=== PATIENT | female | born 1990 | race Hispanic/Latino ===

== ENCOUNTER 2022-06-27 15:11 | Day surgery (SDC) | payer OTHER, SELFPAY ==
[2022-06-27 17:02] VITALS: BMI 52.9
== END 2022-06-27 18:20 | disposition home health service (06) ==
LOC: CSHLD/OP 15:11
PROVIDERS: ATTEND Family Medicine
DX: Z36.89 Encounter for other specified antenatal screening (principal)
CPT/HCPCS: 59025; 76819

== ENCOUNTER 2022-07-18 04:59 | Inpatient (IN) | payer MEDICAID, OTHER ==
[2022-07-18] MEDS ORDERED: NS w/ Oxytocin 30 units 500 ML IV SCH ×2 (06:01→11:48)
[2022-07-18] MEDS ORDERED: Bicitra 30 ML UDCUP PO PRN (06:01)
[2022-07-18] MEDS ORDERED: Ondansetron PF 4 MG/2 ML Vial IVP PRN ×3 (06:01→11:48)
[2022-07-18] MEDS ORDERED: Lactated Ringer's 1,000 ML IV SCH (06:01)
[2022-07-18] MEDS ORDERED: Carboprost 250 MCG/ML AMP IM PRN (06:01)
[2022-07-18] MEDS ORDERED: Famotidine/PF 20 mg/2ml Vial SLOW IVP PRN (06:01)
[2022-07-18] MEDS ORDERED: Diphenoxylate HCl/Atropine Tablet PO PRN (06:01)
[2022-07-18] MEDS ORDERED: Misoprostol 200 MCG TAB PR PRN (06:01)
[2022-07-18] MEDS ORDERED: Methylergonovine 0.2 MG/ML VIAL IM PRN (06:01)
[2022-07-18] MEDS ORDERED: hydrALAZINE 20 MG/ML VIAL SLOW IVP PRN ×2 (06:01→11:48)
[2022-07-18] MEDS ORDERED: Promethazine HCl 25 MG/ML VIAL IM PRN ×3 (06:01→11:48)
[2022-07-18] MEDS ORDERED: Tranexamic Acid 1,000 MG/10 ML VIAL IVP PRN (06:01)
[2022-07-18] MEDS ORDERED: CEFAZOLIN 3 GM in Sodium Chloride 0.9% 100 ML IVPB SCH (06:15)
[2022-07-18 06:23] LABS: Hemoglobin 10.9 g/dL (12.0-15.5); Mean Corpuscular HGB CONC 33.3 g/dL (32.0-36.0); Mean Corpuscular Hemoglobin 29.1 pg (27.0-33.0); Mean Corpuscular Volume 87.2 fl (81.6-98.3); Mean Platelet Volume 11.5 fl (7.4-10.4); Platelet Count 262 10x3/uL (150-450); RBC Distribution Width 13.2 % (11.5-14.5); Red Blood Cell (RBC) Count 3.75 10x6/uL (3.90-5.03)
[2022-07-18 06:54] LABS: Syphilis Antibody Nonreactive (Nonreactive); Syphilis Antibody Index 0.04 S/CO (<1.00 Non-Reactive)
[2022-07-18 06:55] LABS: Hep B Surf Ag - L&D Non-Reactive S/CO (NonReactive)
[2022-07-18] MEDS ORDERED: Morphine PF 10 MG/10 ML VIAL ONE (07:10)
[2022-07-18] MEDS ORDERED: Oxytocin 10 UNITS/ML VIAL ONE (07:11)
[2022-07-18] MEDS ORDERED: PHENYLEPHRINE-NS 100 MCG/ML 10 ML SYRINGE ONE (07:42)
[2022-07-18] MEDS ORDERED: Dexamethasone 4 mg/ml Vial ONE (07:44)
[2022-07-18] MEDS ORDERED: Ondansetron PF 4 MG/2 ML Vial ONE (07:44)
[2022-07-18] MEDS ORDERED: Phenylephrine 40 MG/NS 250 ML 250 ML ONE (07:48)
[2022-07-18] MEDS ORDERED: Metoclopramide HCl 10 MG/2 ML VIAL ONE (07:57)
[2022-07-18] MEDS ORDERED: Fentanyl 100 MCG/2 ML VIAL ONE (08:22)
[2022-07-18 08:35] VITALS: BMI 54.3
[2022-07-18] MEDS ORDERED: Promethazine HCl 25 MG SUPP PR PRN (08:55)
[2022-07-18] MEDS ORDERED: Naloxone HCl 0.4 mg/ml Vial IV PRN (08:55)
[2022-07-18] MEDS ORDERED: Ketorolac Tromethamine 30 MG/ML VIAL IVP PRN (08:55)
[2022-07-18] MEDS ORDERED: Naloxone HCl 0.4 mg/ml Vial IVP PRN ×2 (08:55)
[2022-07-18] MEDS ORDERED: Fentanyl 100 MCG/2 ML VIAL SLOW IVP PRN (08:55)
[2022-07-18] MEDS ORDERED: Meperidine HCl/PF 25 MG/ML VIAL SLOW IVP PRN (08:55)
[2022-07-18] MEDS ORDERED: diphenhydrAMINE 50 MG/ML VIAL IVP PRN (08:55)
[2022-07-18] MEDS ORDERED: Moisturizing Cream (Eucerin) 113 GM JAR TOP PRN (08:55)
[2022-07-18] MEDS ORDERED: Ondansetron HCl/PF 4 MG/2 ML Vial IVP PRN (08:55)
[2022-07-18] MEDS ORDERED: Communication Order-Pharmacy FS SCH (09:00)
[2022-07-18] MEDS ORDERED: Ketorolac Tromethamine 30 MG/ML VIAL IVP SCH ×2 (09:00→15:00)
[2022-07-18] MEDS ORDERED: Simethicone Chewable 80 MG TAB PO PRN (11:48)
[2022-07-18] MEDS ORDERED: Lanolin Ointment 7 GM TUBE TOP PRN (11:48)
[2022-07-18] MEDS ORDERED: diphenhydrAMINE 25 MG CAP PO PRN (11:48)
[2022-07-18] MEDS ORDERED: Boostrix 0.5 ML (Tdap) VIAL (>/=7 yrs of age) IM ONE (11:48)
[2022-07-18] MEDS ORDERED: Bisacodyl 10 MG SUPP PR PRN (11:48)
[2022-07-18] MEDS ORDERED: Docusate 100 MG CAP PO SCH (12:00)
[2022-07-18] MEDS ORDERED: Prenatal Vitamin 1 TAB PO SCH (12:00)
[2022-07-18] MEDS ORDERED: Ferrous Sulfate 325 MG TAB PO SCH (12:00)
[2022-07-18] MEDS: Ketorolac Tromethamine 30 MG/ML VIAL IVP SCH (18:13)
[2022-07-18] MEDS: Ferrous Sulfate 325 MG TAB PO SCH (19:08)
[2022-07-18] MEDS ORDERED: Meperidine HCl/PF 25 MG/ML VIAL IM PRN (21:00)
[2022-07-18] MEDS ORDERED: HYDROcodone/Acetaminophen 5/325 mg Tablet PO PRN (21:00)
[2022-07-19] MEDS: Ketorolac Tromethamine 30 MG/ML VIAL IVP SCH ×2 (00:37→05:02)
[2022-07-19] MEDS: Docusate 100 MG CAP PO SCH ×3 (00:38→20:43)
[2022-07-19] MEDS: HYDROcodone/Acetaminophen 5/325 mg Tablet PO PRN ×4 (00:49→20:43)
[2022-07-19 05:32] LABS: Hemoglobin 10.7 g/dL (12.0-15.5); Mean Corpuscular Hemoglobin 29.1 pg (27.0-33.0); Mean Platelet Volume 11.4 fl (7.4-10.4); Platelet Count 257 10x3/uL (150-450); RBC Distribution Width 13.2 % (11.5-14.5); Red Blood Cell (RBC) Count 3.68 10x6/uL (3.90-5.03)
[2022-07-19] MEDS: Ferrous Sulfate 325 MG TAB PO SCH (07:14)
[2022-07-19] MEDS: Prenatal Vitamin 1 TAB PO SCH (08:54)
[2022-07-19] MEDS: Ibuprofen 800 MG TAB PO SCH ×2 (14:28→21:33)
[2022-07-20] MEDS: Ibuprofen 800 MG TAB PO SCH ×2 (06:05→13:34)
[2022-07-20] MEDS: HYDROcodone/Acetaminophen 5/325 mg Tablet PO PRN ×3 (06:09→15:55)
[2022-07-20 08:00] VITALS: BP 121/73; TEMP 97.7
[2022-07-20] MEDS: Ferrous Sulfate 325 MG TAB PO SCH ×2 (08:02→08:57)
[2022-07-20] MEDS: Prenatal Vitamin 1 TAB PO SCH (08:57)
[2022-07-20] MEDS: Docusate 100 MG CAP PO SCH (08:57)
== END 2022-07-20 16:00 | disposition home or self-care (01) | DRG 788 ==
LOC: CSHLD 04:59 → CSHPP 11:10
PROVIDERS: ADMIT Family Medicine; ATTEND Family Medicine
PROC: 10D00Z1 Extraction of Products of Conception, Low, Open Approach (ICD-10-PCS; principal; 2022-07-18)
DX: O34.211 Maternal care for low transverse scar from previous cesarean delivery (principal); Z3A.39 39 weeks gestation of pregnancy; Z37.0 Single live birth; E03.9 Hypothyroidism, unspecified; O99.284 Endocrine, nutritional and metabolic diseases complicating childbirth; E66.01 Morbid (severe) obesity due to excess calories; O99.214 Obesity complicating childbirth; O32.8XX0 Maternal care for other malpresentation of fetus, not applicable or unspecified; O36.60X0 Maternal care for excessive fetal growth, unspecified trimester, not applicable or unspecified; Z79.890 Hormone replacement therapy; Z79.899 Other long term (current) drug therapy
CPT/HCPCS: 36415; 51702; 85027; 86780; 86850; 86900; 86901; 87340; J1100; J1200; J1885; J2274; J2405; J2590; J2765; J3010

== ENCOUNTER 2022-07-21 16:04 | Emergency (ER) | payer MEDICAID ==
[~2022-07-21 16:04] MED LIST: Iopamidol 370 76% 100 ML VIAL ONE
[2022-07-21] MEDS ORDERED: Morphine 4 MG/ML VIAL ONE ×2 (16:30→18:32)
[2022-07-21] MEDS ORDERED: Ketorolac Tromethamine 30 MG/ML VIAL ONE ×2 (16:30)
[2022-07-21 16:34] LABS: #Eosinphils 0.2 10x3/uL (0.0-0.5); #Monocytes 0.5 10x3/uL (0.0-1.1); #Neutrophils 7.6 10x3/uL (1.5-8.4); %Basophils 0.3 % (0.0-2.0); %Eosinophils 2.1 % (0.0-6.0); %Lymphocytes 12.7 % (18.0-47.0); %Neutrophils 79.3 % (40.0-75.0); Hemoglobin 10.8 g/dL (12.0-15.5); Mean Corpuscular HGB CONC 32.6 g/dL (32.0-36.0); Mean Corpuscular Volume 88.7 fl (81.6-98.3); Mean Platelet Volume 11.2 fl (7.4-10.4); Platelet Count 338 10x3/uL (150-450); RBC Distribution Width 13.3 % (11.5-14.5); Red Blood Cell (RBC) Count 3.73 10x6/uL (3.90-5.03); White Blood Cell (WBC) Count 9.6 10x3/uL (3.5-10.5)
[2022-07-21 16:45] LABS: ALT (SGPT) 18 U/L (8-55); AST (SGOT) 27 U/L (5-34); Albumin 3.2 g/dL (3.5-5.0); Alkaline Phosphatase 142 U/L (40-110); Anion Gap 15 mmol/L (10-20); BUN (Urea Nitrogen) 9 mg/dL (7.0-18.7); Bilirubin, Total 0.2 mg/dL (0.2-1.2); Calc. Creatinine Clearance 0 mL/min (70-130); Calcium 8.5 mg/dL (7.8-10.44); Carbon Dioxide 22 mmol/L (22-29); Chloride 107 mmol/L (98-107); Estimated GFR 123; Glucose 113 mg/dL (70-105); Potassium 3.9 mmol/L (3.5-5.1); Protein, Total 6.2 g/dL (6.0-8.3); Sodium 140 mmol/L (136-145)
[2022-07-21 18:29] LABS: Bilirubin Neg (Negative); Blood, Urine 150 (Negative); Clarity Clear (Clear); Glucose, Urine (Dipstick) Normal (Negative); Ketone, Urine 50 mg/dL (Negative); Leukocyte 25 (Negative); Nitrite Negative (Negative); Protein, Urine (Dipstick) 30 mg/dl (Neg-Trace); Specific Gravity, Urine 1.015 (1.005-1.030); Urobilinogen Normal mg/dL (Less than 2); pH, Urine 6.5 (5.0-9.0)
[2022-07-21 18:47] LABS: Bacteria/HPF 1+ HPF (None Seen); WBC/HPF 0-3 HPF (0-3)
[2022-07-21 18:48] LABS: Mucous/LPF 1+ LPF (<2+)
== END 2022-07-21 19:25 | disposition home or self-care (01) ==
LOC: CSHERS 16:04
DX: M79.642 Pain in left hand (principal); M79.641 Pain in right hand; D64.9 Anemia, unspecified
CPT/HCPCS: 36415; 71045; 71275; 80053; 81003; 81015; 83880; 84484; 85025; 85379; 93005; 96374; 96375; 96376; J1885; J2270